=== PATIENT | male | born 1975 | race Caucasian/White ===

== ENCOUNTER 2019-05-11 01:37 | Emergency (ER) | payer OTHER ==
[2019-05-11] MEDS ORDERED: Diphtheria,Pertussis(Acell),Tetanus Vaccine 0.5 ML SDV IM ONE (02:07)
--- NOTE | 2019-05-11 02:22 | EDM.PDOC ---
ED HPI GENERAL MEDICAL PROBLEM - General Chief Complaint: Laceration Stated Complaint: FELL,LACERATION TO NOSE Time Seen by Provider: 05/11/19 02:00 Source of Information: Reports: Patient, RN History Limitations: Reports: No Limitations - History of Present Illness INITIAL COMMENTS - FREE TEXT/NARRATIVE: 43 yo male from [place], [place] fell going up stairs tonight while intoxicated and lacerated his nose. He had self-limited epistaxis that is resolved on arrival. No LOC. No neck pain. Does not recall when he last had a tetanus vaccine. Onset: Today Onset Date: 05/11/19 Onset Time: 01:00 Duration: Minutes:, Constant Location: Reports: Face Quality: Reports: Dull Severity: Mild Improves with: Reports: Other (time) Worsens with: Reports: Other (none) Context: Reports: Trauma Associated Symptoms: Reports: No Other Symptoms Treatments PREF[employer]RICATED [employer]MER: Reports: Dressing(s) Middle Nose Pain Score (Numeric/FACES): 2 - Related Data Allergies Allergy/AdvReac Type Severity Reaction Status Date / Time No Known Allergies Allergy Verified 05/11/19 01:56 Home Meds: Home Meds Aspirin 325 mg PO DAILY 05/11/19 [History] Citalopram [Citalopram HBr] 20 mg PO DAILY 05/11/19 [History] Omeprazole 20 mg PO DAILY 05/11/19 [History] Past Medical History Cardiovascular History: Reports: Afib Gastrointestinal History: Reports: GERD Neurological History: Reports: CVA Psychiatric History: Reports: Anxiety - Past Surgical History HEENT Surgical History: Reports: Adenoidectomy, Tonsillectomy Other HEENT Surgeries/Procedures: nasal polyps Musculoskeletal Surgical History: Reports: Other (See Below) Other Musculoskeletal Surgeries/Procedures:: fifth metatarsal metal plate placed Social & Family History - Family History Family Medical History: Noncontributory - Tobacco Use Smoking Status *Q: Current Every Day Smoker Years of Tobacco use: 25 Packs/Tins Daily: 0.5 - Caffeine Use Caffeine Use: Reports: Soda, Tea Caffeine Use Comment: daily soda and tea use. - Alcohol Use Days Per Week of Alcohol Use: 1 Number of Drinks Per Day: 3 Total Drinks Per Week: 3 Date of Last Drink: 05/11/19 - Recreational Drug Use Recreational Drug Use: No ED ROS GENERAL - Review of Systems Review Of Systems: See Below Constitutional: Reports: No Symptoms HEENT: Reports: Nosebleed Respiratory: Reports: No Symptoms Cardiovascular: Reports: No Symptoms Skin: Reports: Wound (nasal laceration) Neurological: Reports: No Symptoms, Other (intoxication). Denies: Confusion, Dizziness, Headache ED EXAM, SKIN/RASH Exam: See Below Exam Limited By: No Limitations General Appearance: Alert, WD/WN, No Apparent Distress Eye Exam: Bilateral Eye: Conjunctival Injection, Normal Inspection Ears: Hearing Grossly Normal Nose: Normal Inspection, Other (nose bleed resolved) Throat/Mouth: Normal Inspection, Normal Lips, Normal Voice, No Airway Compromise Head: Atraumatic, Normocephalic Neck: Normal Inspection, Non-Tender Respiratory/Chest: No Respiratory Distress, No Accessory Muscle Use Extremities: Normal Inspection, Normal Range of Motion, Non-Tender, No Pedal Edema Neurological: Alert, Oriented, CN II-XII Intact, Normal Cognition, No Motor/ Sensory Deficits Psychiatric: Normal Affect, Normal Mood Skin: Warm, Dry, Normal Color, No Rash, Wound/Incision (longitudnal nasa lacerations) Location, Skin: Face (nose) Characteristics: Linear (x2) Associated features: Tenderness ED SKIN PROCEDURES - Laceration/Wound Repair Face Appearance: Subcutaneous, Clean Distal NVT: Neuro & Vascular Intact, No Tendon Injury Anesthetic Type: Local Local Anesthesia - Lidocaine (Xylocaine): 1% Plain Local Anesthetic Volume: 3cc Skin Prep: Saline Closed with: Sutures Lac/Wound length In cm: 2.7 Suture Size: 6-0 # of Sutures: 7 Suture Type: Prolene, Interrupted, Simple Drain Placement: No Sterile Dressing Applied: Nurse Tetanus Status Addressed: Yes Complications: No Course - Vital Signs Last Recorded V/S: Last Vital Signs Temp 36.4 C 05/11/19 02:03 Pulse 73 05/11/19 02:03 Resp 16 05/11/19 02:03 BP 112/76 05/11/19 02:03 Pulse Ox 100 05/11/19 02:03 - Orders/Labs/Meds Orders: Active Orders 24 hr Category Date Time Status Vaccines to be Administered [RC] PER UNIT ROUTINE Care 05/11/19 02:07 Active Lidocaine 1% [Xylocaine-MPF 1%] Med 05/11/19 02:08 Once 5 ml INJECT ONETIME ONE Meds: Medications Discontinued Medications Generic Name Dose Route Start Last Admin Trade Name Freq PRN Reason Stop Dose Admin Diphtheria/Tetanus/Acell Pertussis 0.5 ml 05/11/19 02:07 Adacel IM 05/11/19 02:08 .ONCE ONE Departure - Departure Time of Disposition: 02:40 Disposition: Home, Self-Care 01 Condition: Fair Clinical Impression: Nasal laceration Qualifiers: Encounter type: initial encounter Qualified Code(s): S01.21XA - Laceration without foreign body of nose, initial encounter Nasal fracture Qualifiers: Encounter type: initial encounter Fracture type: open Qualified Code(s): S02.2XXB - Fracture of nasal bones, initial encounter for open fracture - Discharge Information *PRESCRIPTION DRUG MONITORING PROGRAM REVIEWED*: No *COPY OF PRESCRIPTION DRUG MONITORING REPORT IN PATIENT BETHANY: No Instructions: Nasal Fracture, [id number], Laceration Care, Adult, Easy-to- Read Referrals: PCP,None [Primary Care Provider] - Additional Instructions: Clean your wounds twice daily with 1/2 water and 1/2 peroxide. Dry. Apply Bacitracin ointment. Use acetaminophen as needed for pain relief. Use Afrin or Neosynephrine for nasal congestion per package instructions. Stitches out in a clinic of your choice a week. If you nose looks crooked when all the swelling goes down you will need a referral from you family doctor to an ENT doctor for straightening. Recheck if you see signs of infection promptly. - My Orders Last 24 Hours: My Active Orders 05/11/19 02:07 Vaccines to be Administered [RC] PER UNIT ROUTINE 05/11/19 02:08 Lidocaine 1% [Xylocaine-MPF 1%] 5 ml INJECT ONETIME ONE - Assessment/Plan Last 24 Hours: My Active Orders 05/11/19 02:07 Vaccines to be Administered [RC] PER UNIT ROUTINE 05/11/19 02:08 Lidocaine 1% [Xylocaine-MPF 1%] 5 ml INJECT ONETIME ONE
[2019-05-11] MEDS ORDERED: Bacitracin Oint 1 GM U/D Packet TOP ONE (02:37)
== END 2019-05-11 02:45 | disposition home or self-care (01) ==
LOC: JP.ED 01:37
DX: S02.2XXB Fracture of nasal bones, initial encounter for open fracture (principal); K21.9 Gastro-esophageal reflux disease without esophagitis; F41.9 Anxiety disorder, unspecified; F17.210 Nicotine dependence, cigarettes, uncomplicated; Z23 Encounter for immunization; Z79.82 Long term (current) use of aspirin; Z79.899 Other long term (current) drug therapy; Z86.73 Personal history of transient ischemic attack (TIA), and cerebral infarction without residual deficits; W10.9XXA Fall (on) (from) unspecified stairs and steps, initial encounter
CPT/HCPCS: 12013; 90471; 90715; 99282; J2001